=== PATIENT | female | born 1975 | race African-American/Black ===

== ENCOUNTER 2017-10-13 08:01 | Day surgery (SDC) | payer BC ==
[2017-10-02 15:42] VITALS: BMI 45.0
[2017-10-13] MEDS ORDERED: BUPIVACAINE HCL/PF 2.5 MG/ML - 30 ML VIAL IJ ONE (08:05)
[2017-10-13] MEDS ORDERED: ONDANSETRON 4 MG/2 ML VIAL ONE (08:38)
[2017-10-13] MEDS ORDERED: ceFAZolin SODIUM 1 GM VIAL ONE (08:38)
[2017-10-13] MEDS ORDERED: DEXAMETHASONE SOD PHOSPHATE 4 MG/1 ML VIAL ONE (08:38)
[2017-10-13] MEDS ORDERED: SUCCINYLCHOLINE CHLORIDE 200 MG/10 ML VIAL ONE (08:39)
[2017-10-13] MEDS ORDERED: ePHEDrine SULFATE 50 MG/1 ML AMPULE ONE (08:39)
[2017-10-13] MEDS ORDERED: ROCURONIUM BROMIDE 50 MG/5 ML VIAL ONE (08:39)
[2017-10-13] MEDS ORDERED: PROPOFOL 20 ML ONE (08:39)
[2017-10-13] MEDS ORDERED: fentaNYL CITRATE 250 MCG/5 ML VIAL ONE (08:42)
[2017-10-13] MEDS ORDERED: MIDAZOLAM HCL 2 MG/2 ML SINGLE DOSE VIAL ONE ×2 (08:42)
[2017-10-13] MEDS ORDERED: ACETAMINOPHEN INJECTION 100 ML IVPB ONE (08:58)
[2017-10-13] MEDS ORDERED: PHENYLEPHRINE HCL 10 MG/1 ML SINGLE DOSE VIAL ONE (09:42)
[2017-10-13] MEDS ORDERED: DESFLURANE GAS 240 ML BOTTLE IH ONE (09:46)
[2017-10-13] MEDS ORDERED: BUPIVACAINE HCL/PF 0.25% (2.5MG/ML) 10 ML VIAL IJ ONE ×2 (10:18→11:05)
[2017-10-13] MEDS ORDERED: GLYCOPYRROLATE 0.2 MG/1 ML VIAL ONE ×3 (10:46→10:59)
[2017-10-13] MEDS ORDERED: NEOSTIGMINE METHYLSULFATE 0.5 MG/ML - 10 ML MDV ONE (10:47)
[2017-10-13] MEDS ORDERED: oxyCODONE HCL 5 MG TABLET PO PRN (11:07)
[2017-10-13] MEDS ORDERED: ONDANSETRON 4 MG/2 ML VIAL IVPUSH PRN ×2 (11:07→11:30)
[2017-10-13] MEDS ORDERED: SODIUM CHLORIDE 1,000 ML IV SCH (11:15)
[2017-10-13] MEDS ORDERED: FAMOTIDINE 20 MG/50 ML IVPB 20 MG/50 ML MG IVPB ONE (11:18)
--- NOTE | 2017-10-13 11:19 | OP ---
Operative Note - Note: Operative Date: 10/13/17 Pre-Operative Diagnosis: Epigastric Pain. Vomiting. Gerd. Malfunctioning Mechanical Device secondary to Gastric Band Operation: Removal of Gastric Band plus subcutaneous port component. Laparoscopic Lysis of Adhesions. Excision of Fibrous Capsule around stomach. Diagnostic Laparoscopy Findings: Band embedded in adhesions and scar tissue. Band removed and fibrous capsule dissected off stomach Post-Operative Diagnosis: Same as Pre-op (abdominal adhesions;fibrous capsule around stomach) Surgeon: Arcenio Landers Human Factors Engineer: Maribeth Willingham Anesthesia: General Specimens Removed: Gastric Band plus sub-Q port component Estimated Blood Loss (mls): 20 Operative Report Dictated: Yes
[2017-10-13] MEDS ORDERED: LACTATED RINGERS SOLUTION 1,000 ML IV SCH (11:30)
[2017-10-13] MEDS ORDERED: PROMETHAZINE HCL 25 MG/1 ML VIAL IVPUSH PRN (11:30)
[2017-10-13 11:42] LABS: HEMATOCRIT 33.5 % (32.4-45.2); HEMOGLOBIN 11.1 GM/dl (10.7-15.3); MCH 28.8 pg (25.7-33.7); MEAN CELL VOLUME 87.3 fl (80-96); MEAN PLT VOLUME 7.8 fl (7.5-11.1); PLATELET COUNT 253 K/MM3 (134-434); RBC 3.85 M/mm3 (3.60-5.2); RDW 12.7 % (11.6-15.6); WHITE BLOOD COUNT 9.9 K/mm3 (4.0-10.8)
[2017-10-13] MEDS ORDERED: FAMOTIDINE 20 MG PREMIXED IVPB IVPB ONE (11:43)
[2017-10-13 11:59] LABS: ANION GAP 6 (8-16); BLOOD UREA NITROGEN 14 mg/dl (7-18); CALCIUM 8.5 mg/dl (8.4-10.2); CHLORIDE 103 mmol/L (98-107); CO2 25 mmol/L (22-28); CREATININE 1.2 mg/dl (0.6-1.3); GLUCOSE,RANDOM 118 mg/dl (74-106); SODIUM 134 mmol/L (136-145)
[2017-10-13] MEDS ORDERED: ENOXAPARIN NA (PORCINE) 40 MG/0.4 ML DISP.SYRIN SQ ONE ×2 (13:00→13:38)
[2017-10-13] MEDS ORDERED: oxyCODONE HCL 5 MG TABLET ONE (13:40)
[2017-10-13 14:28] VITALS: BP 133/83; PULSE 63; TEMP 98.1
--- NOTE | 2017-10-13 19:50 | OP ---
DATE OF OPERATION: 10/13/2017 PREOPERATIVE DIAGNOSES: 1. Epigastric pain. 2. Vomiting. 3. Gastroesophageal reflux disease. 4. Mechanical complication of implantable device secondary to gastric band. POSTOPERATIVE DIAGNOSES: 1. Epigastric abdominal pain. 2. Vomiting. 3. Gastroesophageal reflux disease. 4. Mechanical complication of implantable device secondary to gastric band. 5. Abdominal adhesions. 6. Fibrous capsule around the stomach. PROCEDURE PERFORMED: 1. Removal of gastric band plus subcutaneous port component. 2. Laparoscopic lysis of adhesions. 3. Excision of fibrous capsule around the stomach. 4. Diagnostic laparoscopy. OPERATING SURGEON: Arcenio Landers MD CABLE REELER: DERIC Grant ANESTHESIA: General. OPERATIVE PROCEDURE: The patient was brought into the operating room, placed on the OR table in the supine position. All precautions were taken initially including padding for the back and the feet, and Venodyne boots were placed on both lower extremities. At that point, the abdomen was prepped and draped in the usual manner. A Veress needle was placed in the left upper quadrant, and a pneumoperitoneum was established. A number 12 bladeless trocar was placed in the left upper quadrant. Through that trocar, a laparoscopic camera was placed. Under direct vision, number 5 and number 15 bladeless trocars were placed in the right upper quadrant, and a number 12 bladeless trocar below the left costal margin. A Astrid liver retractor was then placed in the epigastrium, and this was attempted to retract the left lobe of the liver. However, once this was attempted, there were noted to be adhesions between the stomach distally and the undersurface of the left lobe of the liver; so, the liver retractor could not fit. With the liver being held up by laparoscopic instruments, the operating surgeon was able to dissect the scar tissue off the undersurface of the liver. This was done very carefully in order not to perform any injury to the adjacent stomach. This was done mostly with a laparoscopic scissor, although occasionally, cautery was used. Once enough room was dissected, the liver retractor was able to fit under the liver, and the patient was placed in a 20-degree reverse Trendelenburg position. At this point, the band tubing was noted, but the band itself was embedded into scar tissue around the stomach. The operating surgeon pulled the band tubing towards the patient's left side, the operating surgeon was then able to use electrocautery to dissect the scar tissue off the band on the lesser curvature side. Once this was done and the band was in full view in the lesser curvature, the band tubing was then pulled to the patient's right side by the operating surgeon. The wet process miller head assistant surgeon then retracted the stomach inferiorly, and now, the cautery was used to open the wrap on the greater curvature side, and this was done all the way towards the left esophagogastric junction until the entire band anteriorly was now in full view. The band was then cut, and then, the band was opened up and removed from around the stomach in one piece and sent off the field with the band tubing to Pathology as a specimen. Attention was now directed to the fibrous capsule around the stomach. With the operating wet process miller head assistant surgeon lifting it up with laparoscopic instruments, the surgeon was able to split the fibrous tubing. This was from inferior to superior until the anterior stomach wall of the stomach was noted and had no fibrous capsule around it. At this point, under direct vision, all trocars were removed, and pneumoperitoneum was released. The number 15 right upper quadrant trocar site was now extended laterally with a scalpel, and dissection continued with electrocautery down to the fibrous capsule around the port. The port was then completely exposed and removed from the right anterior rectus muscle and sent off the field as a specimen to Pathology with the rest of the band. At this point, all trocar sites received 0.25% Marcaine. They were closed with 4-0 Biosyn in subcuticular fashion. The number 15 trocar site where the port was first was closed with 3-0 Vicryl in the subcutaneous tissue, followed by 4-0 Biosyn in subcuticular fashion. Dressings were applied. Patient awoke from anesthesia and transferred out of the operating room to the recovery room in stable condition. EXPECTED BLOOD LOSS: 20 mL Jamaal [id number]
[2017-10-13] MEDS ORDERED: FAMOTIDINE 20 MG/50 ML IVPB 20 MG/50 ML MG IVPB SCH (22:00)
--- NOTE | 2017-10-15 15:44 | PATH ---
Surgical Pathology Report Patient Name: DORA RAVI [facility]. Rec. #: [id number] /Age/Gender: 1975 (Age: 42) / F Account: [id number] Location: [facility] Taken: 10/13/2017 Received: 10/13/2017 Reported: 10/15/2017 Physicians: Arcenio Landers M.D. Specimen(s) Received GASTRIC BAND AND PORT Clinical History Mechanical complication of band Final Diagnosis GASTRIC BAND AND PORT, REMOVAL: GASTRIC BAND AND PORT, DESCRIBED (GROSS EXAMINATION ONLY). Electronically Signed Maribeth Salazar M.D. Gross Description Received fresh labeled "gastric band and port," is a 4.5 cm in diameter focally disrupted gastric band. The band displays a 32 cm in length portion of white tubing extending from one aspect. Also received within the same container is a 3 cm in diameter x 1.5 cm in depth white, circular device, consistent with a port. The port displays a 15 cm in length portion of white tubing extending from one aspect. No soft tissue is present. No sections are submitted, gross only. /10/14/2017 saudi10/14/2017
== END 2017-10-13 14:25 | disposition home or self-care (01) ==
LOC: FASU 08:01
PROVIDERS: ATTEND Surgery
PROC: 0DP60CZ Removal of Extraluminal Device from Stomach, Open Approach (ICD-10-PCS; 2017-10-13)
PROC: 0DN64ZZ Release Stomach, Percutaneous Endoscopic Approach (ICD-10-PCS; 2017-10-13)
PROC: 0DP64CZ Removal of Extraluminal Device from Stomach, Percutaneous Endoscopic Approach (ICD-10-PCS; principal; 2017-10-13 09:45)
DX: T85.518A Breakdown (mechanical) of other gastrointestinal prosthetic devices, implants and grafts, initial encounter (principal); Y93.89 Activity, other specified; Y92.89 Other specified places as the place of occurrence of the external cause; K95.09 Other complications of gastric band procedure; K31.89 Other diseases of stomach and duodenum
CPT/HCPCS: 36415; 80048; 84703; 85027; 88300-TC; 94760; J0131